=== PATIENT | female | born 2000 | race Hispanic/Latino ===

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

== ENCOUNTER 2022-07-01 14:10 | Emergency (ER) | payer MEDICAID ==
[~2022-07-01] VITALS: Ht 162.6 cm; Wt 127.0 kg
[2022-07-01 16:43] VITALS: BP 138/58
[2022-07-01] MEDS ORDERED: DICYCLOMINE 20MG (10MG/ML) AMP IM STA (17:00)
[2022-07-01] MEDS ORDERED: FAMOTIDINE 20MG VIAL IV ONE (17:00)
[2022-07-01] MEDS ORDERED: ONDANSETRON 4MG INJ IVP ONE (17:00)
[2022-07-01] MEDS ORDERED: 0.9%NACL 1000ML 1,000 ML IV ONE (17:00)
[2022-07-01 17:14] LABS: BASOPHILS % (AUTO) 0.4 % (0.0-5.0); EOSINOPHILS % (AUTO) 5.5 % (0.0-8.0); HEMATOCRIT 34.2 % (36-48); MEAN CORPUSCULAR HEMOGLOBIN 28.1 pg (27.0-33.0); MEAN CORPUSCULAR HGB CONC 31.6 g/dL (32.0-36.0); MEAN CORPUSCULAR VOLUME 89.1 fL (80-100); MONOCYTES % (AUTO) 6.8 % (3.0-13.0); PLATELET COUNT (AUTO) 311 K/uL (130-400); RED BLOOD CELL COUNT(AUTO) 3.84 MIL/uL (4.00-5.50); RED CELL DISTRIBUTION WIDTH 14.6 % (11.0-15.5); WHITE BLOOD COUNT (AUTO) 13.9 K/uL (4.8-10.8)
[2022-07-01 17:25] LABS: CREATININE 0.8 mg/dL (0.5-1.5); POTASSIUM 3.7 mmol/L (3.5-5.1)
[2022-07-01 17:29] LABS: ALBUMIN 3.4 g/dL (3.5-5.0); TOTAL PROTEIN, SERUM 7.9 g/dL (6.0-8.3)
[2022-07-01 17:56] LABS: APPEARANCE,URINE CLOUDY (CLEAR); BILIRUBIN,URINE NEGATIVE (NEGATIVE); COLOR,URINE LIGHT-YELLOW (YELLOW); GLUCOSE, URINE (UA) NEGATIVE (NEGATIVE); KETONES,URINE NEGATIVE (NEGATIVE); LEUKOCYTE ESTERASE ,URINE 75 Leu/uL (NEGATIVE); NITRATE,URINE NEGATIVE (NEGATIVE); OCCULT BLOOD,URINE NEGATIVE (NEGATIVE); PH,URINE 6.5 (5.0-8.0); PROTEIN,URINE 20 mg/dL (NEGATIVE); UROBILINOGEN,URINE 0.2 mg/dL (0.2-1.0)
[2022-07-01 17:59] LABS: HCG,QUALITATIVE URINE NEGATIVE (NEGATIVE)
[2022-07-01 18:01] LABS: BACTERIA,URINE RARE /HPF (None Seen); MUCUS,URINE RARE LPF (None Seen); SQUAMOUS EPITHELIAL CELL,UR MANY /HPF (0-2)
[2022-07-01] MEDS ORDERED: ONDA4TAB10 PO (19:14)
[2022-07-01] MEDS ORDERED: FAMO-136 PO (19:14)
[2022-07-01] MEDS ORDERED: DICY20TA2 PO (19:14)
[2022-07-01] MEDS ORDERED: CEPH500B PO (19:14)
[2022-07-01] MEDS ORDERED: PROPOFOL 1000 MG/100 ML 100 ML IV ONE (21:57)
[2022-07-03] MEDS ORDERED: SULF1TAB42 PO (19:50)
== END 2022-07-01 19:32 | disposition home or self-care (01) ==
LOC: EDH 14:10
DX: N39.0 Urinary tract infection, site not specified (principal); B34.9 Viral infection, unspecified; Z20.822 Contact with and (suspected) exposure to COVID-19; Z91.040 Latex allergy status; Z98.890 Other specified postprocedural states
CPT/HCPCS: 99284; 96374; 96361; 87635; 96375; 80053; 83690; 85025; 87088; 87804 ×2; 81001; 81025; 36415; 96372; C9803; J7030; J3490; J2405; J0500; S0028; J2704